=== PATIENT | female | born 1985 | race Caucasian/White ===

== ENCOUNTER 2018-11-24 10:53 | Emergency (ER) | payer OTHER ==
[~2018-11-24] VITALS: Ht 172.7 cm; Wt 70.3 kg
== END 2018-11-24 14:29 | disposition home or self-care (01) ==
LOC: ER 10:53
DX: R05 Cough (principal)

== ENCOUNTER 2018-12-08 10:53 | Emergency (ER) | payer OTHER ==
[~2018-12-08] VITALS: Ht 172.7 cm; Wt 70.3 kg
[2018-12-08] MEDS ORDERED: ZITHROMAX500 MG PO (11:08)
[2018-12-08] MEDS ORDERED: TUSSIN CF COUG118 M1 PO (11:08)
[2018-12-08] MEDS ORDERED: BACTRIM DS TAB1 EACH PO (12:30)
[2018-12-08] MEDS ORDERED: MUPIROCIN22 GM TOP (12:30)
== END 2018-12-08 13:01 | disposition home or self-care (01) ==
LOC: ER 10:53
DX: L03.114 Cellulitis of left upper limb (principal)

== ENCOUNTER 2022-07-01 10:20 | Emergency (ER) | payer OTHER ==
[~2022-07-01] VITALS: Ht 172.7 cm; Wt 65.8 kg
[~2022-07-01 10:20] MED LIST: BACTRIM DS TAB1 EACH PO; MUPIROCIN22 GM TOP; TUSSIN CF COUG118 M1 PO; ZITHROMAX500 MG PO
== END 2022-07-01 12:23 | disposition home or self-care (01) ==
LOC: ER 10:20
DX: M54.50 Low back pain, unspecified (principal); M79.671 Pain in right foot

== ENCOUNTER 2022-10-09 12:24 | Emergency (ER) | payer OTHER ==
[~2022-10-09] VITALS: Ht 172.7 cm; Wt 67.1 kg
== END 2022-10-09 14:37 | disposition home or self-care (01) ==
LOC: ER 12:24
DX: M54.2 Cervicalgia (principal)